=== PATIENT | female | born 2000 | race Two or more races ===

== ENCOUNTER → 2021-03-19 11:48 | Outpatient (CLI) | payer OTHER | END | disposition home or self-care (01) | LOC: PPH VACUNA 11:48 | DX: Z23 Encounter for immunization (principal) ==

== ENCOUNTER → 2021-04-09 | Outpatient (CLI) | payer OTHER | END | disposition home or self-care (01) | LOC: PPH VACUNA | DX: Z23 Encounter for immunization (principal) ==